=== PATIENT | male | born 1975 | race Caucasian/White ===

== ENCOUNTER → 2020-03-05 | Outpatient (CLI) | payer OTHER | LOC: KOH-I 14:05 | DX: M47.26 Other spondylosis with radiculopathy, lumbar region (principal); Q76.0 Spina bifida occulta | CPT/HCPCS: 72100 ==

== ENCOUNTER → 2020-06-19 | Outpatient (CLI) | payer OTHER | LOC: KOH-I 13:21 | DX: M79.671 Pain in right foot (principal) | CPT/HCPCS: 73620 ==

== ENCOUNTER → 2020-11-17 | Outpatient (CLI) | payer OTHER | LOC: EMI 08:00 | DX: S93.431A Sprain of tibiofibular ligament of right ankle, initial encounter (principal); M25.871 Other specified joint disorders, right ankle and foot | CPT/HCPCS: 73721 ==

== ENCOUNTER → 2020-12-15 | Outpatient (CLI) | payer OTHER | LOC: KOH-I 14:46 | DX: S92.251A Displaced fracture of navicular [scaphoid] of right foot, initial encounter for closed fracture (principal); R93.6 Abnormal findings on diagnostic imaging of limbs | CPT/HCPCS: 73610; 73630 ==

== ENCOUNTER → 2021-01-14 | Outpatient (CLI) | payer OTHER | LOC: KOH-I 14:05 | DX: S92.251D Displaced fracture of navicular [scaphoid] of right foot, subsequent encounter for fracture with routine healing (principal); M19.071 Primary osteoarthritis, right ankle and foot | CPT/HCPCS: 73630 ==

== ENCOUNTER → 2021-03-22 | Outpatient (CLI) | payer OTHER | LOC: KOH-I 10:45 | DX: S92.251A Displaced fracture of navicular [scaphoid] of right foot, initial encounter for closed fracture (principal); M19.071 Primary osteoarthritis, right ankle and foot | CPT/HCPCS: 73630 ==

== ENCOUNTER → 2021-06-03 | Outpatient (CLI) | payer OTHER | LOC: KOH-I 09:42 | DX: M19.011 Primary osteoarthritis, right shoulder (principal); M19.012 Primary osteoarthritis, left shoulder | CPT/HCPCS: 73030 ==

== ENCOUNTER → 2021-07-30 | Outpatient (CLI) | payer OTHER | LOC: KOH-I 16:00 | DX: J32.9 Chronic sinusitis, unspecified (principal) | CPT/HCPCS: 70486 ==